=== PATIENT | male | born 2005 | race Caucasian/White ===

== ENCOUNTER 2024-09-24 20:37 | Emergency (ER) | payer OTHER, SELFPAY ==
--- OUTSIDE RECORDS SUMMARY | 2024-09-24 20:40 | XMS_ITS ---
Author Name [facility] Organization Unknown History of Medication Use Medication Directions Dispensed Refills Start Date End Date [facility] Fluticasone Propionate 50 MCG/ACT Nasal Suspension Fluticasone Propionate 50 MCG/ACT Nasal Suspension QTY: 16 gram Days: 30 Refills: 2 Written: 01/20/24 Patient Instructions: INSTILL 2 SPRAYS IN EACH NOSTRIL DAILY 01/20/2024 04/19/2024 active Cefdinir 300 MG Oral Capsule Cefdinir 300 MG Oral Capsule QTY: 20 capsule Days: 10 Refills: 0 Written: 02/04/21 Patient Instructions: 1 cap bid x 10 days 02/04/2021 02/14/2021 completed Xofluza 2 x 20 MG Oral Tablet Therapy Pack Xofluza (40 MG Dose) 2 x 20 MG Oral Tablet Therapy Pack QTY: 2 tablet Days: 1 Refills: 0 Written: 08/14/19 Patient Instructions: 2 tabs po once 08/14/2019 08/15/2019 completed predniSONE 20 MG Oral Tablet predniSONE 20 MG Oral Tablet QTY: 18 tablet Days: 9 Refills: 0 Written: 01/31/24 Patient Instructions: take 3 tablets po qd for 3 days, 2 tablets po qd for 3 days and 1 tablet po qd for 3 days 01/31/2024 02/09/2024 completed Amoxicillin 250 MG/5ML OR SUSR Amoxicillin 250 MG/5ML Oral Suspension Reconstituted QTY: 200 mL Days: 10 Refills: 0 Written: 02/19/11 Patient Instructions: Give 2 tsp po BID x 10 days 02/19/2011 03/01/2011 completed Problems Problem Status Onset Date Problem Type Date of Resolution Source Exercise induced bronchospasm (disorder) active 2017-10-[address] [facility] Left lower quadrant abdominal mass active EncounterDiagnosisAct HHCCT Pes anserine bursitis active 2020-05-30 ProblemAct [facility] Superior glenoid labrum lesion of right shoulder, subsequent encounter active 2022-05-24 ProblemAct [facility] Acute pain of right shoulder active 2022-05-03 ProblemAct [facility] Immunizations Vaccine Date Source Lot Number Status Prevnar 13 04/20/2005 [facility] completed Hep B 07/16/2005 [facility] completed IPV 02/08/2005 [facility] completed FLU SHOT 5 YRS & UP (P) 08/18/2016 [facility] [id number] completed FLU SHOT 3YR - 18YR (S) 03/19/2020 [facility] [id number] completed HPV 9 - PRIVATE 10/18/2017 [facility] [id number] complet ed DTaP 02/08/2005 [facility] completed Varicella 11/14/2009 [facility] completed FLU SHOT 06/03/2010 [facility] [id number] completed Hib (ActHIB) 02/08/2005 [facility] completed MMR 11/14/2009 [facility] completed Hib (ActHIB) 2004 [facility] completed DTaP 05/19/2006 [facility] completed IPV 07/16/2005 [facility] completed MMR 02/09/2006 [facility] completed Meningococcal (Bexsero) B 03/08/2023 [facility] [id number] completed DTaP 11/14/2009 [facility] completed DTaP 2004 [facility] completed Prevnar 13 2004 [facility] completed Hib (ActHIB) 04/20/2005 [facility] completed Men (MCV4) MENACTRA 10/14/2015 [facility] [id number] com pleted IPV 2004 [facility] completed FLU SHOT 5 YRS & UP (P) 05/30/2015 [facility] [id number] completed VAQTA 04/28/2021 [facility] [id number] completed Meningococcal (Bexsero) B 02/02/2023 [facility] [id number] completed IPV 11/13/2008 [facility] completed FLU SHOT 5 YRS & UP (P) 04/25/2019 [facility] [id number] completed VAQTA 02/02/2023 [facility] [id number] completed Men (MCV4) MENACTRA 04/28/2021 [facility] [id number] com pleted FLU SHOT 05/25/2011 [facility] [id number] completed Hep B 2004 [facility] completed FLULAVAL 6 MOS - 18 YEARS (STATE) 04/28/2021 [facility] [id number] completed Tdap 10/14/2015 [facility] [id number] completed FLU SHOT 5 YRS & UP (P) 05/12/2017 [facility] [id number] completed Hep B 2004 [facility] completed FLU SHOT 04/24/2014 [facility] [id number] completed HPV 9 - PRIVATE 03/06/2019 [facility] [id number] complet ed Varicella 10/14/2015 [facility] [id number] completed Hib (ActHIB) 09/22/2005 [facility] completed DTaP 04/20/2005 [facility] completed FLU SHOT 03/24/2012 [facility] [id number] completed FLU SHOT 05/14/2013 [facility] [id number] completed Prevnar 13 02/08/2005 [facility] completed Prevnar 13 02/09/2006 [facility] completed Encounters Encounter Type Encounter Reason Primary Diagnosis Location Date Ambulatory [facility] 02/17/2024 Emergency Unspecified eustachian tube disorder, unspecified ear Unspecified eustachian tube disorder, unspecified ear [facility] 02/10/2024 Ambulatory Encounter for immunization Encounter for immunization [facility] 01/20/2024 Ambulatory [facility] 12/21/2023 Ambulatory Encntr for general adult medical exam w/o abnormal findings Encntr for general adult medical exam w/o abnormal findings [facility] 03/08/2023 Ambulatory [facility] 02/02/2023 Ambulatory [facility] 05/24/2022 Ambulatory [facility] 05/19/2022 Ambulatory [facility] 05/19/2022 Ambulatory [facility] 05/03/2022
--- OUTSIDE RECORDS SUMMARY | 2024-09-24 20:40 | XMS_ITS | Clinical Summary ---
Author Organization [facility], and [facility] Address [address] [place] [address] Care Team Providers Care Emt/Dispatcher Name Role Phone Santi Melgoza MD Primary Care Provider + Chris Solorzano MD Unavailable [phone] Medications acetaminophen 500 MG TabletIndicatio ns:Pain Take 1 tablet by mouth Every 6 Hours As Needed for Pain. 30 tablet 08/19/2022 Active ibuprofen 600 MG TabletIndicatio ns:Pain Take 1 tablet by mouth Every 6 Hours As Needed. 30 tablet 08/19/2022 Active ondansetron 4 MG TabletIndicatio ns:Nausea and Vomiting Take 1 tablet by mouth 3 Times a Day As Needed. 10 tablet 08/19/2022 Active oxyCODONE 5 MG TabletIndicatio ns:Pain Take 1 tablet by mouth Every 6 Hours As Needed for Pain. Max Daily Amount: 20 mg 15 tablet 08/19/2022 Active gabapentin 100 MG CapsuleIndicati ons:Antiseizure Therapy Take 1 capsule by mouth 3 Times a Day. 9 capsule 08/25/2022 Active Social History Tobacco Use Types Packs/Day Years Used Date Smoking Tobacco: Never Assessed Sex and Gender Information Value Date Recorded Sex Assigned at Male 08/18/2022 1:46 PM EST Legal Sex Male 11:33 AM EST Gender Identity Male 08/18/2022 1:46 PM EST Sexual Orientation Not on file Plan of Treatment Health Maintenance Due Date Last Done Comments HIV SCREENING 2017 IMM: HPV (1 - Male 3-dose series) 09/20/2019 IMM: Meningococcal B (1 of 2 - Standard) 2020 Hepatitis C screening 2022 IMM: DTap/ Tdap/ Td (1 - Tdap) 09/20/2023 COVID-19 Vaccine (1 - 2023-2 5 season) 2024 IMM: Influenza (#1) 2024 IMM: RSV (1 - 1-dose 75+ series) 09/20/2079 Pneumococcal Vaccine: Pediat rics (0 to 5 Years) and At-Risk Patients (6 to 49 Years) Aged Out No longer eligible b ased on patient's age to complete this topic Insurance MVERSE PLUS MVERSE PLUS Cam[employer] [facility] Threefold Photos PLUS Care Teams Emt/Dispatcher Relationship Specialty Start Date End Date Santi Melgoza MD [address] [place] [address] [place] [address] PCP - General 06/23/22 Chris Solorzano MD [address] [place] [address] [place] [address] Surgery - Orthopedic 08/21/22
--- OUTSIDE RECORDS SUMMARY | 2024-09-24 20:40 | XMS_ITS | Encounter Summary ---
Author Organization [facility] Address [address] [place] [address] Care Team Providers Care Staff Forester Name Role Phone Santi Melgoza MD Primary Care Provider [phone] Encounter Details Date Type Department Care Team (Late st Contact Info) Description 12/21/2023 12:45 PM EDT Hospital Encounter [facility] [address] [place] [phone] Social History Tobacco Use Types Packs/Day Years Used Date Smoking Tobacco: Never Smokeless Tobacco: Never Alcohol Use Standard Drinks/Week Comments Not Currently 0 (1 standard drink = 0.6 oz pur e alcohol) Sex and Gender Information Value Date Recorded Sex Assigned at Male 02/10/2024 10:32 PM EDT Gender Identity Male 02/10/2024 10:32 PM EDT Sexual Orientation Heterosexual (straight) 02/09 10:32 PM EDT documented as of this encounter Plan of Treatment Not on file documented as of this encounter Procedures Procedure Name Priority Date/Time Associated Diagnosis Comments US ABDOMEN-LIMITED Routine 12/21/2023 1: 18 PM EDT Left lower quadrant abdominal mass documented in this encounter Results * US Abdomen-Limited (12/21/2023 1:18 PM EDT) Anatomical Region Laterality Modality Abdomen Ultrasound 12/21/2023 1:20 PM EDT Impressions 12/21/2023 1:23 PM EDT Sonographic evidence mostly reflecting a 2.3 cm elongated superficial subcutaneous soft tissue lipoma, corresponding to the LEFT lower quadrant palpable area of concern. No abnormal vascularity. Narrative 12/21/2023 1:23 PM EDT HISTORY: LLQ abd wall mass, rule out lipoma vs cyst.. TECHNIQUE: Limited ultrasound of the LEFT lower quadrant palpable area of concern was performed using a high frequency linear transducer. COMPARISON: None. FINDINGS: Limited superficial imaging of the LEFT lower quadrant palpable area of concern demonstrates evidence of an elongated hypoechoic structure containing faint linear echogenic strands in the superficial subcutaneous soft tissue and measuring up to 1.6 x 2.3 x 0.4 cm, without any abnormal vascularity. Procedure Note Lenore Valdez MD - 12/21/2023 HISTORY: LLQ abd wall mass, rule out lipoma vs cyst.. TECHNIQUE: Limited ultrasound of the LEFT lower quadrant palpable area ofconcern was performed using a high frequency linear transducer. COMPARISON: None. FINDINGS: Limited superficial imaging of the LEFT lower quadrant palpable area ofconcern demonstrates evidence of an elongated hypoechoic structurecontaining faint linear echogenic strands in the superficial subcutaneoussoft tissue and measuring up to 1.6 x 2.3 x 0.4 cm, without any abnormal vascularity. IMPRESSION: Sonographic evidence mostly reflecting a 2.3 cm elongated superficialsubcutaneous soft tissue lipoma, corresponding to the LEFT lower quadrantpalpable area of concern. No abnormal vascularity. Zaynab Cohen MD IMG US ORDERABLES documented in this encounter Visit Diagnoses Not on filedocumented in this encounter Care Teams Staff Forester Relationship Specialty Start Date End Date Santi Melgoza MD [address] [place] [phone] PCP - General Pediatric, General 12/21/23 documented as of this encounter
--- OUTSIDE RECORDS SUMMARY | 2024-09-24 20:40 | XMS_ITS | Clinical Summary ---
Author Organization [facility] Address [address] [place] [address] Care Team Providers Care Tool Room Attendant Name Role Phone Santi Melgoza MD Primary Care Provider [phone] Allergies No known active allergies Social History Tobacco Use Types Packs/Day Years Used Date Smoking Tobacco: Never Smokeless Tobacco: Never Tobacco Cessation:Counseling Given: Not Answered Alcohol Use Standard Drinks/Week Comments Not Currently 0 (1 standard drink = 0.6 oz pur e alcohol) Sex and Gender Information Value Date Recorded Sex Assigned at Male 02/10/2024 10:32 PM EDT Gender Identity Male 02/10/2024 10:32 PM EDT Sexual Orientation Heterosexual (straight) 02/09 10:32 PM EDT Last Filed Vital Signs Vital Sign Reading Time Taken Comments Blood Pressure 114/72 02/11/2024 2:16 AM EDT Pulse 88 02/11/2024 2:16 AM EDT Temperature 36.9 C (98.5 F) 02/11/2024 2:16 AM EDT Respiratory Rate 18 02/11/2024 2:16 AM EDT Oxygen Saturation 100% 02/11/2024 2:16 AM EDT Inhaled Oxygen Concentration - - Weight 83.8 kg (184 lb 11.9 oz) 024 10:26 PM EDT Height 182.9 cm (6') 02/10/2024 10:29 PM EDT Body Mass Index 25.06 02/10/2024 10:26 PM EDT Plan of Treatment Health Maintenance Due Date Last Done Comments Hepatitis C Virus Screening 2004 HIV Screening 2017 HPV Vaccines (1 - Male 3-dose series) 09/20/2019 DTaP/Tdap/Td Vaccines (1 - Tdap) 09/20/2023 Hepatitis B Vaccines (1 of 3 - 19+ 3-dose series) 09/20/2023 Influenza Vaccine 02/16/2024 04/28/2021, , 06/15/2006, Additional history exists COVID-19 Vaccine ( season) 2024 02/22/2022, 11/30/2020, 11/08/2020 Influenza Vaccine Discontinued 04/28/2021, , 06/15/2006, Additional history exists Pneumococcal Vaccine: Pediatric (0-5 Years) and At-Risk Patients (6 to 49 Years) Aged Out No longer eligible based on patient's age to complete this topic Care Teams Tool Room Attendant Relationship Specialty Start Date End Date Santi Melgoza MD [address] [place] [address] PCP - General Pediatric, General 12/21/23
[2024-09-24 20:43] VITALS: BP 158/83; PULSE 96; RESP 20; TEMP 37.2; O2SAT 98; BMI 27.8
--- NOTE | 2024-09-24 20:50 | ED.EAR ---
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 Swapnil states that he was taking an antibiotic for a toe infection and he did not drink enough water and it got stuck. Since that time he has been coughing and trying to get up. He notes that he is incredibly uncomfortable and states he will not be able to sleep. He talked to his parents were both in the medical field and he was advised to come to the emergency room. Swapnil has tried to drink fluids but it has not helped. This is not happened to him in the past. Related Data Previous Rx's ?Medication ?Instructions ?Recorded cephalexin 500 mg capsule 500 mg PO QID 10 days #40 caps 09/18/24 Allergies Allergy/AdvReac Type Severity Reaction Status Date / Time No Known Drug Allergies Allergy Verified 09/18/24 11:40 Review of Systems Status of ROS: Reports: 6 or more systems reviewed and unremarkable except as noted in History and below [facility] Social History Smoking Status: Never smoker Do you use any of these nicotine containing products: None How often do you have a drink containing alcohol: never AUDIT-C Alcohol total score: 0 Non-prescribed substance use: denies use Exam Narrative: Exam Narrative: Alert and oriented. Somewhat anxious. Clearly having discomfort. Eyes are clear. Oral cavity moist mucous membranes. No swelling of the tongue. Heart with regular rate and rhythm and lungs are clear bilaterally. Moving all extremities. Const: Vital Signs, click to edit/add: Vital Signs - 24 hr 09/24/24 20:43 09/24/24 22:27 09/25/24 01:03 Temperature 99.0 F 96.5 F L 98.3 F Pulse Rate [Pulse Oximeter] 96 70 56 L Respiratory Rate 20 18 18 Blood Pressure [Ri ght Upper Arm] 158/83 H 121/74 121/85 Pulse Oximetry 98 96 98 Oxygen Delivery Me thod Room Air Room Air Room Air Documenting provider has reviewed patient's vital signs: yes Course Course ED Course: Patient appears to be having significant discomfort. It usually foreign body sensation persist long after the tablet or pill has passed a bit his discomfort seems to be more than that. He does confirm that this was a capsule. We will try to have him drink some liquids to help dissolve this tablet. Will also give him a injection of Toradol IM for pain control. Will take x-rays of soft tissue neck and chest to ensure that there is no evidence of pneumomediastinum or soft tissue swelling of the pharynx or epiglottitis. This is highly unlikely but again pain seems out of proportion to exam. Reevaluation(s) Reevaluation #1: Patient noted to have normal chest x-ray and soft tissue neck. He really has not had improvement with the Toradol. We have talked about options tonight including lidocaine spray to the posterior oropharynx and attempted visualization with the bronchoscope but I do not think that he would tolerate this. Gave him the option of going home with pain medication and returning in the morning if this feeling persists and at that time ENT would see him. At this time he does not think he would be able to sleep. Therefore will offer him CT of the upper chest and neck to ensure there is no residual injury. He does understand that we may not find anything but states that he will not be able to sleep. Vital Signs Vital signs: Initial Vital Signs Temperature 99.0 F 09/24/24 20:43 Temperature Source Temporal Artery Scan 09/24/24 20:43 Pulse Rate 96 09/24/24 20:43 Respiratory Rate 20 09/24/24 20:43 Blood Pressure 158/83 H 09/24/24 20:43 Blood Pressure Mean 108 H 09/24/24 20:43 Pulse Oximetry 98 09/24/24 20:43 Oxygen Delivery Method Room Air 09/24/24 20:43 Vital Signs Temperature 99.0 F 09/24/24 20:43 Pulse Rate 96 09/24/24 20:43 Respiratory Rate 20 09/24/24 20:43 Blood Pressure 158/83 H 09/24/24 20:43 Pulse Oximetry 98 09/24/24 20:43 Oxygen Delivery Method Room Air 09/24/24 20:43 Temperature 98.3 F 09/25/24 01:03 Pulse Rate 56 L 09/25/24 01:03 Respiratory Rate 18 09/25/24 01:03 Blood Pressure 121/85 09/25/24 01:03 Pulse Oximetry 98 09/25/24 01:03 Oxygen Delivery Method Room Air 09/25/24 01:03 Medications Administered Medications: Discontinued Medications Generic Name Dose Route Start Last Admin Trade Name German PRN Reason Stop Dose Admin Ketorolac Tromethamine 30 mg 09/24/24 21:00 09/24/24 21:09 Ketorolac 30 Mg/Ml Inj IM 09/24/24 21:01 30 mg ONCE ONE Administration Medical Decision Making MDM Narrative Medical decision making narrative: 1. Foreign body sensation-patient noted to have discomfort out of proportion to exam. Initial x-rays of soft tissue neck and chest were negative. Patient did not have any relief of his symptoms with Toradol. He appeared to be maintaining his airway. He did not think he could sleep and because of the significant discomfort I did elect to offer CT and CT is reassuring with no evidence of foreign body or injury. Patient does appear to feel better about this. He notes that he still has discomfort. He has received Toradol IV and I will send home 1 tablet of Vicodin 5/325 that he may take tonight before bedtime. If he still has persisting pain in the morning that has not improved I asked him to return and at that time will consult ENT. Patient is in agreement with this plan. 2. Disposition-home at this time. Return for worsening symptoms and as needed. Medical Records Medical records reviewed: Yes I reviewed the patient's medical records Imaging Data Chest x-ray: Attestation: I have reviewed the pertinent imaging results. My impression: I do not note any acute abnormalities Radiologist's impression: Unremarkable cardiomediastinal contours. No radiopaque foreign bodies. No lung consolidation. No sign of pleural effusion. No pneumothorax. No acute osseous or soft tissue findings. IMPRESSION: No radiopaque foreign bodies. Soft tissue neck: Attestation: I have reviewed the pertinent imaging results. My impression: I do not note any evidence of epiglottitis or abnormalities Radiologist's impression: he airway is patent and normal. Epiglottis is normal. The retropharyngeal soft tissues are normal. No obvious masses. The visualized cervical spine demonstrates no significant findings. No radiopaque foreign bodies. IMPRESSION: Unremarkable soft tissue views of the neck. No radiopaque foreign bodies CT- Other: Attestation: I have reviewed the pertinent imaging results. Radiologist's impression: Skull base: Unremarkable. Pharynx/Larynx/Trachea: Airway is patent. Epiglottis is normal. Adjacent soft tissues are unremarkable. Salivary glands: Unremarkable. Thyroid gland: Unremarkable. No significant nodules. Lymph nodes: No lymphadenopathy. Vessels: Unremarkable for age. Bones: Unremarkable for age. Misc: No inflammation, mass or fluid collection. Mild scattered mucosal thickening in the ethmoid air cells. Partially visualized mucous retention cyst in the left frontal sinus. Lung apices: Unremarkable. IMPRESSION: Unremarkable soft tissue CT of the neck. No radiopaque foreign body. Discharge Plan Discharge Clinical Impression: Foreign body sensation, throat Patient Disposition: Home, Self-Care Condition: Improved Additional Instructions: Recommend soft foods and fluid for the next 48 hours. If you are not better tomorrow morning please return and we will consult with ENT. Ibuprofen or Tylenol may be used for discomfort. Will give you 1 tablet of Vicodin which is a combination medication of hydrocodone and Tylenol to be used before bedtime tonight for comfort. Prescriptions: No Action cephalexin 500 mg capsule 500 mg PO QID 10 Days Qty: 40 0RF Rx Instructions: OK to stop after 28 doses (7 days) if all symptoms have resolved. If any lingering symptoms, complete all 10 days. Follow Up/Referrals: Provider,Not a Local [Primary Care Provider] - Stand Alone Forms: [employer] Info Instructions
[2024-09-24] MEDS: KETOROLAC 30 MG/ML inj IM (21:09)
--- OUTSIDE RECORDS SUMMARY | 2024-09-24 21:36 | XMS_ITS | Clinical Summary ---
Author Organization [facility] Address [address] [place] [address] Care Team Providers Care Communications Professor Name Role Phone Santi Melgoza MD Primary Care Provider [phone] Allergies No known active allergies Social History [...] age to complete this topic Care Teams Communications Professor Relationship Specialty Start Date End Date Santi Melgoza MD [address] [place] [phone] PCP - General Pediatric, General 12/21/23
--- OUTSIDE RECORDS SUMMARY | 2024-09-24 21:36 | XMS_ITS | Clinical Summary ---
Author Organization [facility], and [facility] Address [address] [facility]th [address] [place] [address] Care Team Providers Care Biochemical Development Engineer Name Role Phone Santi Melgoza MD Primary Care Provider + Chris Solorzano MD Unavailable [phone] Medications acetaminophen 500 MG TabletIndicatio ns:Pain Take [...] patient's age to complete this topic Insurance All-Scrap PLUS All-Scrap PLUS Spot[employer] [facility] [employer] PLUS Care Teams Biochemical Development Engineer Relationship Specialty Start Date End Date Santi Melgoza MD [address] [place] [address] [place] [address] PCP - General 06/23/22 Chris Solorzano MD [address] [place] [address] [place] [address] Surgery - Orthopedic 08/21/22
--- OUTSIDE RECORDS SUMMARY | 2024-09-24 21:36 | XMS_ITS | Encounter Summary ---
Author Organization [facility] Address [address] [place] [address] Care Team Providers Care Steel Sampler Name Role Phone Santi Melgoza MD Primary Care Provider [phone] Encounter Details Date Type Department Care Team (Late st Contact Info) Description 12/21/2023 12:45 PM EDT Hospital Encounter [facility] [address] [place] [phone] Social History Tobacco Use Types Packs/Day [...] on filedocumented in this encounter Care Teams Steel Sampler Relationship Specialty Start Date End Date Santi Melgoza MD [address] [place] [phone] PCP - General Pediatric, General 12/21/23 documented as of this encounter
[2024-09-24 22:27] VITALS: BP 121/74; PULSE 70; RESP 18; TEMP 35.8; O2SAT 96
[2024-09-25 01:03] VITALS: BP 121/85; PULSE 56; RESP 18; TEMP 36.8; O2SAT 98
[2024-09-25] MEDS: HYDROCODONE-ACETAMIN 5-325 MG 1 TAB PO (02:23)
== END 2024-09-25 02:31 | disposition home or self-care (01) ==
PROVIDERS: Emergency Provider Family Medicine
DX: R09.A2 Foreign body sensation, throat (principal)
CPT/HCPCS: 70360; 70491; 71046; 96372; 99284; A9270; J1885; Q9967